=== PATIENT | female | born 1950 | race Caucasian/White ===

== ENCOUNTER → 2017-02-22 | Outpatient (CLI) | payer OTHER ==
--- NOTE | 2017-02-23 09:13 | KCIC ---
Bilateral digital screening mammograms: Reason for examination: Routine screening. Comparison is made to previous studies dated 02/23/2016 and 02/22/2015. Interpretation is made with the benefit of CAD. The skin and nipples show no abnormalities. No abnormal lymph nodes are seen. The breast parenchyma is predominantly fatty. (Breast density: Category A.) There are no dominant masses, suspicious calcifications or architectural distortions. Impression: No evidence of malignancy. Recommend routine screening. BI-RADS Category 1: Negative. "Our facility is accredited by the [employer] Mammography Program." This patient's information has been entered into a reminder system for the patient to be notified with the results of her examination and a target date for the next mammogram. Electronically signed by: Camryn Mcgrath MD (02/23/2017 9:10 AM) [id number]
== END | disposition home or self-care (01) ==
LOC: KCIC MAMMO 14:26
PROVIDERS: ATTEND Family Medicine
DX: Z12.31 Encounter for screening mammogram for malignant neoplasm of breast (principal)
CPT/HCPCS: G0202; 77067

== ENCOUNTER → 2017-12-28 | Outpatient (CLI) | payer MEDICARE ==
--- NOTE | 2017-12-28 10:57 | CARD ---
MR#: [id number] Date of Study: 12/28/2017 Ordering Physician: ABRAM OTERO, Referring Physician: ABRAM OTERO, Tech: Katia Mckenzie [facility] APPROVED REPORT EXAM: Two-dimensional and M-mode echocardiogram with Doppler and color Doppler. Other Information Quality : Good INDICATION Hypertension/HCVD 2D DIMENSIONS RVDd2.7 (2.9-3.5cm)Left Atrium(2D)3.5 (1.6-4.0cm) IVSd0.8 (0.7-1.1cm)Aortic Root(2D)2.8 (2.0-3.7cm) LVDd5.2 (3.9-5.9cm)LVOT Diameter2.0 (1.8-2.4cm) PWd0.8 (0.7-1.1cm)LVDs2.1 (2.5-4.0cm) FS (%) 30.0 %SV112.6 ml LVEF(%)60.0 (>50%) Aortic Valve AoV Peak Emerson.155.0cm/sAoV VTI30.2cm AO Peak GR.9.6mmHgLVOT Peak Emerson.125.4cm/s AO Mean GR.5mmHgAVA (VMAX)2.53cm2 TATO (VTI)2.80cm2 Mitral Valve MV E Rdiyhpoi21.7cm/sMV DECEL NHGM395lw MV A Vcuieygr112.3cm/sE/A Ratio0.7 Tricuspid Valve TR P. Gyeepqel647nr/sRAP WNZSTSGM0pzTb TR Peak Gr.20sjLxFCFS53rgUt Pulmonary Vein S1 Lkdktkwh51.2cm/sD2 Xaqwuofg03.4cm/s LEFT VENTRICLE The left ventricle is normal size. There is normal left ventricular wall thickness. The left ventricu lar systolic function is normal. The Ejection Fraction is 55-60%. There is normal LV segmental wall m otion. Transmitral Doppler flow pattern is Grade I-abnormal relaxation pattern. RIGHT VENTRICLE The right ventricle is normal size. The right ventricular systolic function is normal. ATRIA The left atrium size is normal. The right atrium size is normal. The interatrial septum is intact wit h no evidence for an atrial septal defect or patent foramen ovale as noted on 2-D or Doppler imaging. AORTIC VALVE The aortic valve is calcified but opens well. Doppler and Color Flow revealed trace aortic regurgitat ion. There is no significant aortic valvular stenosis. MITRAL VALVE The mitral valve is calcified but opens well. There is no evidence of mitral valve prolapse. There is no mitral valve stenosis. Doppler and Color Flow revealed no mitral valve regurgitation noted. TRICUSPID VALVE The tricuspid valve is normal in structure and function. Doppler and Color Flow revealed trace tricus pid regurgitation. The PA pressure was estimated at 29 mmHg. There is no tricuspid valve stenosis. PULMONIC VALVE The pulmonic valve is not well visualized. Doppler and Color Flow revealed trace pulmonic valvular re gurgitation. There is no pulmonic valvular stenosis. GREAT VESSELS The aortic root is normal in size. The ascending aorta is normal in size. The IVC is normal in size a nd collapses >50% with inspiration. PERICARDIAL EFFUSION There is no evidence of significant pericardial effusion. Critical Notification Critical Value: No <Conclusion> The left ventricular systolic function is normal. The Ejection Fraction is 55-60%. There is normal LV segmental wall motion. Transmitral Doppler flow pattern is Grade I-abnormal relaxation pattern. Trace tricuspid regurgitation. The PA pressure was estimated at 29 mmHg. There is no evidence of significant pericardial effusion. Signed by : Gavin Hansen, Electronically Approved : 12/28/2017 10:56:04
== END | disposition home or self-care (01) ==
LOC: ECHO 10:09
PROVIDERS: ATTEND Internal Medicine Cardiovascular Disease
DX: I10 Essential (primary) hypertension (principal)
CPT/HCPCS: 93306

== ENCOUNTER 2018-01-09 17:43 | Emergency (ER) | payer MEDICARE ==
[~2018-01-09] VITALS: Ht 154.9 cm; Wt 120.7 kg
[2018-01-09 18:13] VITALS: BP 144/95
--- NOTE | 2018-01-09 19:04 | PHYS DOC ---
Past Medical History Past Medical History: Hypertension Additional Past Medical Histor: OBEST Past Surgical History: Other Additional Past Surgical Histo: RIGHT ARM Alcohol Use: None Drug Use: None Adult General Chief Complaint Chief Complaint: LOWEREXTREMITY INJURY HPI HPI Patient is a 67 year old female who presents with was trying to get out of her 's truck today and stabbed her toe on the curb and then fell onto her right leg at approximately 1500 today. Patient now has right leg and calf pain. Patient states that it is throbbing and would rate it about 9 out of 10 and states that it shoots down into her foot at times. Review of Systems Review of Systems Constitutional: Denies fever or chills [] Eyes: Denies change in visual acuity, redness, or eye pain [] HENT: Denies nasal congestion or sore throat [] Respiratory: Denies cough or shortness of breath [] Cardiovascular: No additional information not addressed in HPI [] GI: Denies abdominal pain, nausea, vomiting, bloody stools or diarrhea [] : Denies dysuria or hematuria [] Musculoskeletal: Right lower extremity pain after a fall. Denies back pain or joint pain [] Integument: Denies rash or skin lesions [] Neurologic: Denies headache, focal weakness or sensory changes [] Endocrine: Denies polyuria or polydipsia [] All other systems were reviewed and found to be within normal limits, except as documented in this note. Current Medications Current Medications Current Medications Medications (Trade) Dose Ordered Sig/Jessy Start Time Stop Time Status Last Admin Dose Admin Acetaminophen/ Hydrocodone Bitart (Lortab 5/325) 1 tab 1X ONCE 01/09/18 19:30 01/09/18 19:31 DC 01/09/18 19:41 1 TAB Ondansetron HCl (Zofran Odt) 4 mg 1X ONCE 01/09/18 19:30 01/09/18 19:31 DC 01/09/18 19:41 4 MG Allergies Allergies Allergies Coded Allergies Type Severity Reaction Last Updated Verified morphine Allergy Intermediate vomiting 01/09/18 Yes Physical Exam Physical Exam Constitutional: Well developed, well nourished, no acute distress, non-toxic appearance. [] HENT: Normocephalic, atraumatic, bilateral external ears normal, oropharynx moist, no oral exudates, nose normal. [] Eyes: PERRLA, EOMI, conjunctiva normal, no discharge. [] Neck: Normal range of motion, no tenderness, supple, no stridor. [] Cardiovascular:Heart rate regular rhythm, no murmur [] Lungs & Thorax: Bilateral breath sounds clear to auscultation [] Abdomen: Bowel sounds normal, soft, no tenderness, no masses, no pulsatile masses. [] Skin: Warm, dry, no erythema, no rash. [] Back: No tenderness, no CVA tenderness. [] Extremities: Right lower leg has No tenderness, no cyanosis, no clubbing, ROM intact, no edema. [] Neurologic: Alert and oriented X 3, normal motor function, normal sensory function, no focal deficits noted. [] Psychologic: Affect normal, judgement normal, mood normal. [] Current Patient Data Vital Signs Vital Signs Date Time Temp Pulse Resp B/P (MAP) Pulse Ox O2 Delivery O2 Flow Rate FiO2 01/09/18 18:13 97.6 95 18 144/95 (111) 98 Room Air 97.6 EKG EKG [] Radiology/Procedures Radiology/Procedures TIB/FIB Impressions: No acute findings lonnieaghan interpretation prelim, arhtritis i recommended to check weight bearing status prior to d/c Course & Med Decision Making Course & Med Decision Making Upon examination patients Right lower leg has no tenderness, no cyanosis, no clubbing, ROM intact, no edema, no bruising. Right pedal pulse is strong. No deformity to right leg. Patient denies hitting her head or injuring anything else during her fall. Patient states she has a history of arthritis and chronic pain. Patient states it is too painful to put a lot of pressure on her right leg. Patient is given [place] and some Zofran here in the ED. Patient's x-ray shows no acute findings. Patient should follow-up with her primary care as soon as possible. I will give the patient prescription for [place]. Staff Physician Addendum: I was working in the ER during the course of this patient's visit. I was available for consultation as needed, but I was not directly involved in the care of this patient. [] Dragon Disclaimer Dragon Disclaimer This electronic medical record was generated, in whole or in part, using a voice recognition dictation system. Departure Departure Impression: Primary Impression: Leg injury Disposition: HOME, SELF-CARE Condition: STABLE Referrals: JOHNATHON SAUNDERS MD (PCP) Patient Instructions: Contusion Additional Instructions: Follow up with your primary care tomorrow. Take all medications as prescribed, Scripts Hydrocodone/Apap 5-325 (NORCO 5-325 TABLET) 1 Each Tablet 1 TAB PO PRN Q6HRS PRN for PAIN, #6 TAB 0 Refills Prov: CITLALLI MUÑOZ APRN 01/09/18 Problem Qualifiers Primary Impression: Leg injury Encounter type: initial encounter Laterality: right Qualified Codes: S89.91XA - Unspecified injury of right lower leg, initial encounter CITLALLI MUÑOZ APRN Jan 09, 2018 19:04 KAYLEEN OBRIEN MD Jan 10, 2018 02:20
[2018-01-09] MEDS ORDERED: HYDROcodone/APAP 5/325MG 1 TAB TABLET PO ONE (19:30)
[2018-01-09] MEDS ORDERED: ONDANSETRON ODT 4 MG TAB.RAPDIS. PO ONE (19:30)
[2018-01-09] MEDS ORDERED: HYDR-971 PO (19:45)
--- NOTE | 2018-01-10 08:14 | RAD ---
Right tibia and fibula radiograph 01/09/2018 6:35 PM INDICATION: Fall with right tibia and fibula pain COMPARISON: None available. TECHNIQUE: 4 views of the right tibia and fibula are provided. FINDINGS: There is no acute fracture or dislocation. Bone mineralization is within normal limits. Joint moderate osteoarthrosis of the knee joint, primarily involving the medial femorotibial joint space with joint space narrowing, subcortical sclerosis and marginal osteophytosis. Regional soft tissues are within normal limits. There is no soft tissue gas or osseous erosion. IMPRESSION: No acute fracture or dislocation of the tibia and fibula. Moderate osteoarthrosis of the knee, primarily affecting the medial femorotibial joint space. Electronically signed by: Karol Morley MD (01/10/2018 8:11 AM) [facility]
== END 2018-01-09 20:18 | disposition home or self-care (01) ==
LOC: ER 17:43
DX: S89.91XA Unspecified injury of right lower leg, initial encounter (principal); I10 Essential (primary) hypertension; Z88.5 Allergy status to narcotic agent; E66.9 Obesity, unspecified; Z68.43 Body mass index [BMI] 50.0-59.9, adult; W10.1XXA Fall (on)(from) sidewalk curb, initial encounter; Y93.89 Activity, other specified; Y92.89 Other specified places as the place of occurrence of the external cause; Y99.8 Other external cause status
CPT/HCPCS: 73590; 99284; Q0162

== ENCOUNTER → 2018-03-15 | Outpatient (CLI) | payer MEDICARE ==
[~2018-03-15] MED LIST: HYDR-3164 PO
--- NOTE | 2018-03-15 14:33 | KCIC ---
Bilateral digital screening mammograms: Reason for examination: Routine screening. Comparison is made to previous studies dated 02/22/2017 and 02/23/2016. Interpretation is made with the benefit of CAD. The skin and nipples show no abnormalities. No abnormal lymph nodes are seen. The breast parenchyma is predominantly fatty. (Breast density: Category A.) There are no dominant masses, suspicious calcifications or architectural distortions. A few benign calcifications are again seen. Impression: No evidence of malignancy. Recommend routine screening. BI-RADS Category 2: Benign. "Our facility is accredited by the [employer] Mammography Program." This patient's information has been entered into a reminder system for the patient to be notified with the results of her examination and a target date for the next mammogram. Electronically signed by: Camryn Mcgrath MD (03/15/2018 2:29 PM) [facility]
== END | disposition home or self-care (01) ==
LOC: KCIC MAMMO 12:03
PROVIDERS: ATTEND Family Medicine
DX: Z12.31 Encounter for screening mammogram for malignant neoplasm of breast (principal)
CPT/HCPCS: 77067

== ENCOUNTER → 2018-08-22 | Outpatient (CLI) | payer MEDICARE ==
[2018-08-22 11:42] LABS: ALBUMIN 3.7 g/dL (3.4-5.0); ALBUMIN/GLOBULIN RATIO 1.1 (1.0-1.7); CALCIUM 9.7 mg/dL (8.5-10.1); GFR 55.5; POTASSIUM 4.7 mmol/L (3.5-5.1); TOTAL BILIRUBIN 0.6 mg/dL (0.2-1.0); TOTAL PROTEIN 7.1 g/dL (6.4-8.2)
[2018-08-22 11:44] LABS: CHOLESTEROL/HDL RATIO 2.4
== END | disposition home or self-care (01) ==
LOC: LAB 11:04
PROVIDERS: ATTEND Internal Medicine Cardiovascular Disease
DX: E78.5 Hyperlipidemia, unspecified (principal)
CPT/HCPCS: 36415; 80053; 80061; 83721

== ENCOUNTER → 2019-03-19 | Outpatient (CLI) | payer MEDICARE ==
--- NOTE | 2019-03-19 16:52 | KCIC ---
Bilateral digital screening mammograms: Reason for examination: Routine screening. Comparison is made to previous studies dated 03/15/2017 and 02/22/2017. Interpretation is made with the benefit of CAD. The skin and nipples show no abnormalities. No abnormal lymph nodes are seen. The breast parenchyma is predominantly fatty. (Breast density: Category A.) There are no dominant masses, suspicious calcifications or architectural distortions. Impression: No evidence of malignancy. Recommend routine screening. BI-RADS Category 1: Negative. "Our facility is accredited by the [employer] Mammography Program." This patient's information has been entered into a reminder system for the patient to be notified with the results of her examination and a target date for the next mammogram. Electronically signed by: Camryn Mcgrath MD (03/19/2019 4:49 PM) [facility]
== END | disposition home or self-care (01) ==
LOC: KCIC MAMMO 11:16
PROVIDERS: ATTEND Nurse Practitioner Family
DX: Z12.31 Encounter for screening mammogram for malignant neoplasm of breast (principal)
CPT/HCPCS: 77067

== ENCOUNTER → 2020-03-22 | Outpatient (CLI) | payer MEDICARE ==
--- NOTE | 2020-03-22 17:02 | KCIC ---
Bilateral digital screening mammograms and tomosynthesis Reason for examination: Routine screening. Comparison is made to previous study dated March 19, 2019 and priors Routine CC and MLO digital views obtained. Interpretation was made with the benefit of CAD. The skin and nipples show no abnormalities. No abnormal lymph nodes are seen. The breast parenchyma is predominantly fatty. (Breast density: Category A.) There are no suspicious masses, suspicious calcifications or architectural distortions. Benign calcifications. Impression: Negative mammogram. Recommend routine screening. BI-RADS Category 1: Negative. "Our facility is accredited by the [employer] Mammography Program." This patient's information has been entered into a reminder system for the patient to be notified with the results of her examination and a target date for the next mammogram. Electronically signed by: Christiano Marie MD (03/22/2020 4:59 PM) [id number]
== END ==
LOC: KCIC MAMMO 10:24
PROVIDERS: ATTEND Nurse Practitioner Family
DX: Z12.31 Encounter for screening mammogram for malignant neoplasm of breast (principal)
CPT/HCPCS: 77063; 77067

== ENCOUNTER → 2021-02-03 | Day surgery (SDC) | payer MEDICARE ==
[~2021-02-03] VITALS: Ht 154.9 cm; Wt 123.0 kg
[~2021-02-03] MED LIST changes: +BUPR150T27 PO; +CELE200C PO; +CETI10TA16 PO; +CRESTOR5 MG PO; +CYAN25002 SL; +CYCL10TA2 PO; +DULO30CA2 PO; +GABA600T7 PO; +HYDROmorphone 2 MG/ML VIAL IVP PRN; +IV RINGERS,LACTATED 1000ML 1,000 ML IV SCH; +LEVO50TA5 PO; +LIDOCAINE 2% PF 5 ML VIAL. ONE; +LISI1TAB20 PO; +MORPHINE SULFATE 2 MG/ML INJ. IVP PRN; +OMEP40CA7 PO; +PROCHLORPERAZINE 10 MG/2 ML VIAL. IVP PRN; +PROPOFOL 10 MG/ML (20ML) VIAL. IV ONE; +VERA240C2 PO; +fentaNYL PF VIAL 100 MCG/2 ML VIAL IVP PRN
[2021-02-03 10:37] VITALS: BP 133/63
[2021-02-03 11:40] VITALS: BP 132/66
--- NOTE | 2021-02-03 12:02 | PREOP HP ---
DATE OF SERVICE: 02/03/2021 REFERRING PHYSICIAN: Rosey Benites MD PRIMARY CARE PHYSICIAN: Rosey Benites MD REASON FOR PROCEDURE: Followup Ventura's esophagus. HISTORY OF PRESENT ILLNESS: This is a 70-year-old female who presents today to follow up on her Ventura's esophagus. ALLERGIES: 1. MORPHINE. 2. SULFA. 3. LATEX. MEDICATIONS: MAR reviewed. PAST MEDICAL HISTORY: Ventura's. FAMILY MEDICAL HISTORY: Ulcerative colitis in her father. REVIEW OF SYSTEMS: A 13-point review of systems was done and positives per HPI. PHYSICAL EXAMINATION: GENERAL: She is an obese female in no apparent distress. HEENT: Oropharynx is clear. CARDIAC: S1, S2. LUNGS: Clear. ABDOMEN: Normoactive bowel sounds. Soft, nontender, nondistended. EXTREMITIES: No edema. NEUROLOGIC: Awake, alert, oriented x3. ASSESSMENT AND PLAN: Ventura's esophagus. She is to undergo upper endoscopy for further evaluation. The risks and benefits including bleeding, perforation, non-diagnosis and sedation were explained. She has agreed to proceed. KWASI/ROBYN/AZIZA DR: Bandar TID: [id number]
--- NOTE | 2021-02-04 18:11 | PATHOLOGY ---
[facility] Accession Number: [id number] . 01 Material submitted: . PART A: small bowel - SMALL BOWEL BIOPSY PART B: stomach - GASTRIC ANTRUM AND BODY BIOPSY PART C: esophagus - DISTAL ESOPHAGUS BIOPSY AT 35 CM. Modifiers: distal, AT 35 CM . 01 Clinical history: . GERD, HX OF DURHAM'S EGD . 02 Diagnosis: A. Small bowel biopsy: - No significant pathologic abnormalities. . B. Gastric biopsies, gastric antrum and gastric body: - Chronic gastritis, mild, with focal intestinal metaplasia. . C. Esophageal biopsy, distal esophagus: - Reflux esophagitis. . (JPM:mmkailyn; 02/04/2021) [facility] 02/04/2021 1355 Local . 02 Comment: Sections of the small bowel biopsy reveal segments of duodenal and small intestine mucosa. Where best oriented, the mucosal villi show no sprue-like changes or significant inflammatory changes. . Sections of the gastric biopsy reveal segments of gastric body and gastric antral mucosa showing congestion and mild chronic inflammation with a small focus of intestinal metaplasia. A properly-controlled immunoperoxidase stain for Helicobacter is negative for Helicobacter organisms. . Sections of the distal esophageal biopsy reveal segments of hyperplastic squamous esophageal mucosa with focal contiguous and separate segments of gastric mucosa showing mild to moderate chronic inflammation. The findings are supportive of the diagnosis of reflux esophagitis. There is no evidence of Durham's change, dysplasia or malignancy. . Special stain: Immunoperoxidase stain for Helicobacter on B1 . (JPM:mml; 02/04/2021) . 02 Electronically signed: . Surya Meehan MD, Pathologist NPI- [id number] . 01 Gross description: . A. The specimen is submitted in formalin, labeled "Emily Arora, small bowel biopsy". Received are 4 segments of pale weston tissue ranging in size from 0.2 to 0.3 cm in maximum dimensions. The specimen is submitted entirely in cassette A1. . B. The specimen is submitted in formalin, labeled "Emily Arora, gastric antrum and body biopsy". Received are 4 segments of pale weston tissue ranging in size from 0.2 to 0.4 cm in maximum dimensions. The specimen is submitted entirely in cassette B1. . C. The specimen is submitted in formalin, labeled "Emily Arora, distal esophagus biopsy at 35 cm". Received are multiple segments of pale weston tissue ranging in size from 0.2 to 0.4 cm in maximum dimensions. The specimen is submitted entirely in cassette C1. ([facility]; 02/03/2021) NRI/NRI 02/03/2021 2131 Local . 02 Pathologist provided ICD-10: K29.50, K21.00 . 02 CPT . 692516, 026468, [id number], [id number] Specimen Comment: A courtesy copy of this report has been sent to [phone], [phone] Specimen Comment: [id number] Specimen Comment: Report sent to / DR JIMENEZ Performed at: 01 [facility] [address], [place], [place] [id number] MD Etienne Vann MD Phone: [phone] Performed at: 02 [facility] [address], [place] [id number] MD Surya Meehan MD Phone: [phone]
== END | disposition home or self-care (01) ==
LOC: SURG 09:58
PROVIDERS: ATTEND Internal Medicine Gastroenterology
DX: K22.70 Barrett's esophagus without dysplasia (principal); K21.00 Gastro-esophageal reflux disease with esophagitis, without bleeding; K31.89 Other diseases of stomach and duodenum; K44.9 Diaphragmatic hernia without obstruction or gangrene; K29.50 Unspecified chronic gastritis without bleeding; I10 Essential (primary) hypertension; E78.00 Pure hypercholesterolemia, unspecified; E03.9 Hypothyroidism, unspecified; M19.90 Unspecified osteoarthritis, unspecified site; F41.9 Anxiety disorder, unspecified; F32.9 Major depressive disorder, single episode, unspecified; Z79.899 Other long term (current) drug therapy; Z88.2 Allergy status to sulfonamides; Z88.6 Allergy status to analgesic agent; Z98.890 Other specified postprocedural states
CPT/HCPCS: 43239; J2704

== ENCOUNTER → 2021-03-29 | Outpatient (CLI) | payer MEDICARE ==
[2021-02-03 11:40] VITALS: BP 132/66
[~2021-03-29] MED LIST changes: +CYCL10TA19 PO; -CYCL10TA2 PO; -HYDROmorphone 2 MG/ML VIAL IVP PRN; -IV RINGERS,LACTATED 1000ML 1,000 ML IV SCH; -LIDOCAINE 2% PF 5 ML VIAL. ONE; -LISI1TAB20 PO; +LISI1TAB39 PO; -MORPHINE SULFATE 2 MG/ML INJ. IVP PRN; -PROCHLORPERAZINE 10 MG/2 ML VIAL. IVP PRN; -PROPOFOL 10 MG/ML (20ML) VIAL. IV ONE; -fentaNYL PF VIAL 100 MCG/2 ML VIAL IVP PRN
--- NOTE | 2021-03-29 13:10 | KCIC ---
Bilateral digital screening mammograms with 3-D tomosynthesis: Reason for examination: Routine screening. Comparison is made to previous studies dated back to 02/18/2014. Bilateral mammograms in CC and oblique projections were obtained with 2-D imaging and 3-D tomosynthes is imaging on a Siemens Inspiration unit and reviewed on the workstation. Interpretation was made wit h the benefit of CAD. The skin and nipples show no abnormalities. No abnormal axillary lymph nodes are seen. The breast par enchyma is predominantly fatty. (Breast density: Category A.) There are no dominant masses, suspiciou s calcifications or architectural distortion. Benign calcifications are present. Impression: No evidence of malignancy. Recommend routine screening. BI-RAD Category 2: Benign. "Our facility is accredited by the [employer] Mammography Program." This patient's information has been entered into a reminder system for the patient to be notified wit h the results of her examination and a target date for the next mammogram. Electronically signed by: Camryn Mcgrath MD (03/29/2021 1:08 PM) [email or web address]
== END ==
LOC: KCIC MAMMO 10:18
PROVIDERS: ATTEND Nurse Practitioner Family
DX: Z12.31 Encounter for screening mammogram for malignant neoplasm of breast (principal)
CPT/HCPCS: 77063; 77067